=== PATIENT | male | born 1960 | race Caucasian/White ===

== ENCOUNTER → 2017-03-23 | Outpatient (CLI) | payer OTHER ==
--- NOTE | 2017-03-23 09:15 | RAD ---
Chest, 2 views, 03/23/2017: History: COPD, disability determination Comparison is made to a study from 06/20/2009. The heart size and pulmonary vascularity are normal. There is mild linear scarring in the right mid lung laterally. No acute infiltrates are seen. There is no evidence of pleural fluid. Moderate spurring is present in the spine. IMPRESSION: 1. Mild linear parenchymal scarring on the right. 2. No acute cardiopulmonary abnormality is detected.
== END | disposition home or self-care (01) ==
LOC: PF 07:09
PROVIDERS: ATTEND Neuromusculoskeletal Medicine, Sports Medicine
DX: J44.9 Chronic obstructive pulmonary disease, unspecified (principal); J98.4 Other disorders of lung
CPT/HCPCS: 71020; 94060